=== PATIENT | female | born 1980 | race Caucasian/White ===

== ENCOUNTER 2019-08-07 10:08 | Outpatient (CLI) | payer MEDICARE, MEDICAID, SELFPAY ==
[2019-08-07 10:39] LABS: Basophils % 0.9 %; Eosinophils # 0.1 10^3/uL (0.0-0.8); Eosinophils % 3.3 %; Hematocrit 43.4 % (37.0-47.0); Hemoglobin 13.7 g/dL (11.5-15.3); Lymphocytes # 0.8 10^3/uL (0.8-4.8); Lymphocytes % 23.5 %; Mean Corpuscular HGB Conc 31.6 g/dL (30.0-36.0); Mean Corpuscular Hemoglobin 28.2 pg (28.0-34.0); Mean Corpuscular Volume 89.5 fL (81-99); Mean Platelet Volume 11.2 fL (7.4-10.4); Monocytes # 0.4 10^3/uL (0.2-0.9); Neutrophils # 2.1 10^3/uL (1.8-7.7); Neutrophils % 61.3 %; Nucleated Red Blood Cells % 0 %; Platelet Count 206 10^3/cmm (130-400); Red Blood Count 4.85 10^6/uL (4.1-5.3); Red Cell Distribution Width 12.4 % (12.1-15.1); White Blood Count 3.4 10^3/uL (4.0-10.0)
[2019-08-07 10:50] LABS: Alanine Aminotransferase 11 U/L (0-33); Glomerular Filtration Rate 62.4 mL/min (90-130)
[2019-08-07 14:09] LABS: UPRO/UCREAT Ratio 0.98 mg/mg CR; Urine Creatinine 87 mg/dL (28-217); Urine Protein Random 85 mg/dL
== END 2019-08-07 10:09 | disposition home or self-care (01) ==
PROVIDERS: Family Provider Physician Assistant Medical; PCP Physician Assistant Medical; Visit Provider Internal Medicine
DX: Z79.899 Other long term (current) drug therapy (principal); M32.9 Systemic lupus erythematosus, unspecified
CPT/HCPCS: 36415; 82565; 82570; 84156; 84460; 85025

== ENCOUNTER 2019-08-23 10:22 | Outpatient (CLI) | payer MEDICARE, MEDICAID, SELFPAY ==
[2019-08-23 11:24] LABS: Basophils % 0.7 %; Eosinophils # 0.1 10^3/uL (0.0-0.8); Eosinophils % 2.1 %; Hematocrit 40.4 % (37.0-47.0); Hemoglobin 12.4 g/dL (11.5-15.3); Lymphocytes # 0.8 10^3/uL (0.8-4.8); Lymphocytes % 19.8 %; Mean Corpuscular HGB Conc 30.7 g/dL (30.0-36.0); Mean Corpuscular Hemoglobin 27.9 pg (28.0-34.0); Mean Corpuscular Volume 90.8 fL (81-99); Mean Platelet Volume 11.6 fL (7.4-10.4); Monocytes # 0.4 10^3/uL (0.2-0.9); Monocytes % 9.4 %; Neutrophils # 2.9 10^3/uL (1.8-7.7); Neutrophils % 67.8 %; Nucleated Red Blood Cells % 0 %; Platelet Count 187 10^3/cmm (130-400); Red Blood Count 4.45 10^6/uL (4.1-5.3); Red Cell Distribution Width 12.1 % (12.1-15.1); White Blood Count 4.3 10^3/uL (4.0-10.0)
[2019-08-23 13:26] LABS: Albumin Level 3.2 g/dL (3.5-5.2); Anion Gap 15.1 (5-19); Blood Urea Nitrogen 16 mg/dL (6-20); Calcium 9.3 mg/Dl (8.6-10.0); Carbon Dioxide 23 mmol/L (22-29); Chloride 102 mmol/L (98-107); Glucose 93 mg/dL (74-109); Iron 104 ug/dL (37-145); Percent Saturation 33.2 % (20-50); Phosphorus 4.3 mg/dL (2.5-4.5); Potassium 4.1 mmol/L (3.5-5.1); Sodium 136 mmol/L (136-145); Total Iron Binding Capacity 313 mg/dL; Unsaturated Iron Binding 209 ug/dL (112-347)
[2019-08-23 13:31] LABS: Parathyroid Hormone 49.9 pg/mL (15-65)
[2019-08-23 13:34] LABS: Creatinine Urine, Random 89 mg/dL (28-217); Microalbum Creatinine Ratio Ur 831 mg/dL (0-20); Microalbumin Random Urine 74 ug/dL (0-20)
[2019-08-23 13:40] LABS: Calcium 9.2 mg/dL (8.8-10.2)
[2019-08-23 14:58] LABS: 25 Hydroxy Vitamin D 25 ng/mL (30-100)
== END 2019-08-23 10:23 | disposition home or self-care (01) ==
PROVIDERS: Family Provider Physician Assistant Medical; PCP Physician Assistant Medical; Visit Provider Internal Medicine Nephrology
DX: N18.3 Chronic kidney disease, stage 3 (moderate) (principal)
CPT/HCPCS: 36415; 80069; 82044; 82306; 82310; 83540; 83550; 83970; 85025

== ENCOUNTER 2020-06-25 14:03 | Emergency (ER) | payer MEDICARE, MEDICAID, SELFPAY ==
[2020-06-25 14:08] VITALS: BP 153/93; PULSE 87; RESP 18; TEMP 36.9; O2SAT 99; BMI 41.5
--- NOTE | 2020-06-25 15:11 | ED_ITS ---
Documented by User: WALTER Herrera 06/26/20 07:12 HPI - Abdominal Pain General: Chief Complaint: Abdominal Pain Stated Complaint: ABD pain,lower right side Time Seen by Provider: 06/25/20 15:00 Source: patient Mode of arrival: ambulatory Limitations: no limitations History of Present Illness: HPI narrative: Pleasant 39-year-old female patient presents to the emergency department with 2-day history of right lower quadrant pain. She reports gradual onset started yesterday, much worse this morning. She reports pain located the right lower quadrant, reports nausea, no change in bowel habits. States last bowel movement yesterday, reports movement makes it worse, reports worse if she coughs, sneezes or ambulates. She denies vaginal discharge or dysuria. She has history of lupus, remains on Plaquenil. She reports ate approximately 2 hours prior to arrival, currently drinking cola. Abdominal surgeries: cholecystectomy. MD elicited complaint: abdominal pain Onset (ago): day(s) (2) Location: RLQ Severity: moderate Quality: stabbing and dull Radiation: R flank and back Exacerbating factors: movement Relieving factors: rest Associated Symptoms: Reports nausea; Denies change in stool character, chills, constipation, diarrhea, dyspepsia, dysuria, excessive flatus, fever(s), hematochezia, fecal incontinence and poor appetite Review of Systems General: Reports: 10 or more systems reviewed and unremarkable except in HPI and below Const: Denies: fever(s), chills, body aches, change in weight, fatigue or malaise Eyes: Denies: blurry vision or eye redness ENMT: Denies: throat pain, dental pain or disequilibrium Card: Denies: chest pain, palpitations, irregular heart rhythm, lightheadedness or dyspnea on exertion Resp: Denies: dyspnea, productive cough, non-productive cough, wheezing or chest congestion GI: Reports: abdominal pain (RLQ) and nausea; Denies: diarrhea, constipation, excessive flatus, fecal incontinence, change in stool character or hematochezia : Denies: difficulty voiding or dysuria Musc: Denies: neck pain, back pain, joint redness or muscle weakness Skin/Breast: Denies: rash, pruritus, skin tenderness or changes in skin color Neuro: Denies: headache(s), weakness in extremities or behavioral changes Psych: Denies: anxiety or depression Jamarcus/Lymph: Denies: easy bruising Physical Exam Const: COMMON NORMALS: no acute distress, patient oriented x3, healthy appearing and alert GENERAL APPEARANCE: cooperative, comfortable and well hydrated HENMT: COMMON NORMALS: normocephalic, Normal external nose present and moist oral mucous membranes HEAD & SCALP: normocephalic NOSE: Normal external nose present Eye: COMMON NORMALS: Equal, round and reactive pupils present and EOMs intact bilaterally GENERAL EYE: appearance normal, both eyes and all related structures PUPIL: Yes Equal, round and reactive pupils present Neck/C-Spine: COMMON NORMALS: full ROM and no lymphadenopathy GENERAL: Yes normal visual inspection and Yes trachea midline CERVICAL SPINE: Yes cervical ROM normal Lymph: LYMPHATIC: no lymphadenopathy noted Chest: COMMONS NORMALS: normal inspection of the chest Resp: COMMON NORMALS: normal respiratory effort and clear to auscultation bilaterally AUSCULTATION: clear to auscultation bilaterally Cardio: COMMON NORMALS: regular rhythm, S1 normal heart sound present and S2 normal heart sound present RHYTHM: regular rhythm HEART SOUNDS: S1 normal heart sound present and S2 normal heart sound present GI: COMMON NORMALS: Normal to inspection, nondistended, normoactive bowel sounds present, Soft to palpation and non-tender INSPECTION: Yes normal to inspection, No Abdominal wall edema, No abdominal distension, Yes central obesity, No visible herniation, No Fluid wave present and Yes other (+ luis, + rebound, + McBurney's) AUSCULTATION: Yes normoactive bowel sounds PALPATION: Yes Soft to palpation, Yes Tenderness to palpation present (GI) Details: RLQ, No Hernia present, No Abdominal wall crepitus present and No Bladder palpation abnormal PERCUSSION: no fluid wave : COMMON NORMALS: Yes no CVA tenderness BLADDER/KIDNEY EXAM: Yes no CVA tenderness and No Bladder palpation abnormal EXTERNAL FEMALE EXAM: No Hernia present Back/Pelvis: COMMON NORMALS: no CVA tenderness and thoracic and lumbar spine normal to inspection Extremity: COMMON NORMALS: normal to inspection and capillary refill normal Neuro: COMMON NORMALS: patient oriented x3 and no focal motor deficits SENSORIUM/ORIENTATION: Yes alert Psych: COMMON NORMALS: mental status grossly normal, Normal thought process present and cooperative ACTIVITY/MOTOR BEHAVIOR: Yes appropriate eye contact THOUGHT PROCESS: Normal thought process present Skin: COMMON NORMALS: no rashes or lesions noted and turgor normal GENERAL SKIN EXAM: no rashes or lesions noted and turgor normal Course Vital Signs: Vital signs: Vital Signs Temperature 98.4 F 06/25/20 14:08 Pulse Rate 83 06/25/20 18:32 Respiratory Rate 16 06/25/20 18:32 Blood Pressure 139/101 06/25/20 18:32 Pulse Oximetry 97 06/25/20 18:32 MDM - Abdominal Pain Lab Data: Labs: Lab Results 06/25/20 06/25/20 06/25/20 Range/Units 15:26 15:26 15:32 WBC 4.7 (4.0-10.0) 10^3/ uL RBC 4.20 (4.1-5.3) 10^6/u L Hgb 11.5 (11.5-15.3) g/dL Hct 37.7 (37.0-47.0) % MCV 89.8 (81-99) fL MCH 27.4 L (28.0-34.0) pg MCHC 30.5 (30.0-36.0) g/dL RDW 13.0 (12.1-15.1) % Plt Count 182 (130-400) 10^3/c mm MPV 11.7 H (7.4-10.4) fL Neut % (Auto) 65.0 % Lymph % (Auto) 19.7 % [place] % (Auto) 11.8 % Eos % (Auto) 2.4 % Baso % (Auto) 0.9 % Neut # (Auto) 3.03 (1.8-7.7) 10^3/u L Lymph # (Auto) 0.9 (0.8-4.8) 10^3/u L [place] # (Auto) 0.6 (0.2-0.9) 10^3/u L Eos # (Auto) 0.1 (0.0-0.8) 10^3/u L Baso # (Auto) 0.0 (0.0-0.1) 10^3/u L Nucleated RBC % (a uto) 0 % Nucleated RBCs # 0.0 /100WBC Sodium 143 (136-145) mmol/L Potassium 4.3 (3.5-5.1) mmol/L Chloride 109 H (98-107) mmol/L Carbon Dioxide 26 (22-29) mmol/L Anion Gap 12.3 (5-19) BUN 19 (6-20) mg/dL Creatinine 0.9 (0.5-0.9) mg/dL GFR Calculation 70.5 L (90-130) mL/min Glucose 90 (65-115) mg/dL Calculated Osmolal ity 298 H (285-295) mOsm/k g Calcium 8.7 (8.5-10.5) mg/dL Total Bilirubin 0.2 (0.15-1.2) mg/dL AST 18 (0-32) U/L ALT 13 (0-33) U/L Alkaline Phosphata se 51 (35-105) IU/L Total Protein 6.1 L (6.6-8.7) g/dL Albumin 3.3 L (3.5-5.2) g/dL Globulin 2.8 (1.3-4.6) g/dL Lipase 49 (13-60) U/L HCG, Qual Negative (Negative) Urine Color (Yellow) Urine Appearance (CLEAR) Urine pH (5-7) Ur Specific Gravit y (1.005-1.030) Urine Protein (Negative) Urine Glucose (UA) (Normal) Urine Ketones (Negative) Urine Blood (Negative) Urine Nitrate (Negative) Urine Bilirubin (Negative) Urine Urobilinogen (Negative) mg/dL Ur Leukocyte Bhumi ase (Negative) Urine RBC (0-2) /hpf Urine WBC (0-5) /hpf Ur Squamous Epith Cells (0-5) /hpf Amorphous Sediment Urine Bacteria (NONE) /hpf 06/25/ Range/Units 15:32 WBC (4.0-10.0) 10^3/ uL RBC (4.1-5.3) 10^6/u L Hgb (11.5-15.3) g/dL Hct (37.0-47.0) % MCV (81-99) fL MCH (28.0-34.0) pg MCHC (30.0-36.0) g/dL RDW (12.1-15.1) % Plt Count (130-400) 10^3/c mm MPV (7.4-10.4) fL Neut % (Auto) % Lymph % (Auto) % [place] % (Auto) % Eos % (Auto) % Baso % (Auto) % Neut # (Auto) (1.8-7.7) 10^3/u L Lymph # (Auto) (0.8-4.8) 10^3/u L [place] # (Auto) (0.2-0.9) 10^3/u L Eos # (Auto) (0.0-0.8) 10^3/u L Baso # (Auto) (0.0-0.1) 10^3/u L Nucleated RBC % (a uto) % Nucleated RBCs # /100WBC Sodium (136-145) mmol/L Potassium (3.5-5.1) mmol/L Chloride (98-107) mmol/L Carbon Dioxide (22-29) mmol/L Anion Gap (5-19) BUN (6-20) mg/dL Creatinine (0.5-0.9) mg/dL GFR Calculation (90-130) mL/min Glucose (65-115) mg/dL Calculated Osmolal ity (285-295) mOsm/k g Calcium (8.5-10.5) mg/dL Total Bilirubin (0.15-1.2) mg/dL AST (0-32) U/L ALT (0-33) U/L Alkaline Phosphata se (35-105) IU/L Total Protein (6.6-8.7) g/dL Albumin (3.5-5.2) g/dL Globulin (1.3-4.6) g/dL Lipase (13-60) U/L HCG, Qual (Negative) Urine Color Yellow (Yellow) Urine Appearance Clear (CLEAR) Urine pH 5 (5-7) Ur Specific Gravit y 1.010 (1.005-1.030) Urine Protein 3+ H (Negative) Urine Glucose (UA) Norm (Normal) Urine Ketones Negative (Negative) Urine Blood Neg (Negative) Urine Nitrate Negative (Negative) Urine Bilirubin Neg (Negative) Urine Urobilinogen Norm (Negative) mg/dL Ur Leukocyte Bhumi ase Negative (Negative) Urine RBC Rare (0-2) /hpf Urine WBC Rare (0-5) /hpf Ur Squamous Epith Cells 0-4 H (0-5) /hpf Amorphous Sediment Not Reportable Urine Bacteria Trace (NONE) /hpf Imaging Data ^: CT Abd/Pel: Radiologist's impression: [facility] [address] [place] [address] CT Scan Report Signed Patient: Gia Aguayo Unit #: [id number] : 1980 Age/Sex: 39 / F ADM Date: 06/25/20 Loc: ER Room/Bed: Attending Dr: Ordering Provider/Ordering MD: Greta Naqvi Date of Service: 06/25/20 Procedure(s): CT abdomen pelvis w con* [id number] Accession Number(s): [id number] Report Number: [id number] WS: [id number] CT abdomen pelvis w con* [id number] REASON FOR EXAM: RLQ pain IV CONTRAST ADMINISTERED: 95 mL of Omnipaque 300. TOTAL EXAM DLP: 1653.[address] scans at [facility] use at least one of these dose optimization techniques: automated exposure control; mA and/or kV adjustment per patient size (includes targeted exams where dose is matched to clinical indication); or iterative reconstruction. FINDINGS: ABDOMEN: There is been previous gastric surgery. A portion of the stomach and perhaps a wrap of the distal esophagus, have become displaced into the mediastinum. The small bowel leaving the surgical stomach follows the course of the duodenum and is dilated in its proximal portion.It appears to be normal caliber after passing the ligament of Treitz. The pancreas appears normal. The spleen is unremarkable. The gallbladder has been surgically removed. No abnormality of the liver is seen. The adrenals and kidneys are unremarkable. No renal mass, calculi, or hydronephrosis. The right colon is very redundant with the cecum lying near the midline where the ileocecal bowel is located. The appendix is not identified. No inflammatory changes seen in the region of the cecum. No mass or adenopathy. No free fluid or focal fluid collection. There are some mildly dilated loops of small bowel in the right upper pelvis/lower abdomen. No other associated changes. Nonspecific. No ureteral calculi. Abdominal aorta and its major branches are unremarkable. PELVIS: Normal urinary bladder. No mass or adenopathy. No free fluid or focal fluid collection. CT/CT abdomen pelvis w con* [id number] IMPRESSION: Postoperative stomach with displacement as above. No definite acute intra-abdominal or pelvic abnormality is identified. Dictated By: Jurgen Wallace Jr, MD Signed By: Jurgen Wallace Jr, MD Signed Date/Time: 06/25/20 172 DD/ 50 Discharge Plan Discharge Patient Disposition: Home Clinical Impression: Abdominal pain Qualifiers: Abdominal location: right lower quadrant Qualified Code(s): R10.31 - Right lower quadrant pain Condition: Stable Prescriptions: No Action sulfamethoxazole-trimethoprim 400-80 mg tablet See Rx Instructions .ROUTE .COMPLEX RF: 0 prednisone 5 mg tablet 5 mg PO DAILY RF: 0 doxepin 10 mg capsule 10 mg PO DAILY RF: 0 mycophenolate mofetil 500 mg tablet 1,500 mg PO BID RF: 0 levothyroxine 50 mcg tablet 50 mcg PO DAILY RF: 0 hydroxychloroquine 200 mg tablet 200 mg PO BID RF: 0 pregabalin 150 mg capsule 150 mg PO BID RF: 0 Discharge Orders: Discharge Order (Routine); Ordered 06/25/20 Ordered By: Ravindra Cristobal Referrals: Thierno Jarrett [Primary Care Provider] - Discharge Diet: Advance as tolerated Discharge Activity: Increase activity as tolerated Patient Instructions: Abdominal Pain (ED) Activity Restrictions/Additional Instructions: Follow-up with medical provider as directed in 5 to 7 days for reevaluation. Return to ED for reevaluation, if worsening abdominal pain. Continue taking all home medications. Return to the ER or your medical provider if condition worsens. Please read and understand discharge instructions. If any questions, please ask. Sign Out Sign Out Data: Patient Sign Out occurred on 06/25/20 at 17:33. Patient's care was discussed, and care was transferred from WALTER Herrera to CHARLENE Sheth. Sign Out Comment: change of shift, transfer of care to CHARLENE Sheth; CT abd/pelvis pending Last updated by Greta Naqvi ARNP at 06/25/20 17:27 Coding Level of Care Code ED Corrections Counselor for Chg Fwd Exam Comprehensive Documented by User: CHARLENE Sheth 06/26/20 00:52 HPI - Abdominal Pain General: Chief Complaint: Abdominal Pain Stated Complaint: ABD pain,lower right side Time Seen by Provider: 06/25/20 15:00 Course Vital Signs: Vital signs: Vital Signs Temperature 98.4 F 06/25/20 14:08 Pulse Rate 83 06/25/20 18:32 Respiratory Rate 16 06/25/20 18:32 Blood Pressure 139/101 06/25/20 18:32 Pulse Oximetry 97 06/25/20 18:32 MDM - Abdominal Pain MDM Narrative: Medical decision making narrative: Patient is a 39-year-old female who comes to the ED with right lower quadrant abdominal pain. I took over patient care from [facility] at 5 PM. She did the initial work-up history and physical exam and says she is suspicious of appendicitis and CT of abdomen results are pending. CBC and CMP were unremarkable. CT of abdomen showed no acute findings. Vitals are stable. Patient was given IV fluids, Zofran and morphine while here in the ED and symptoms did improve. Patient was discharged and told to follow-up with PCP in 5 days. Return to ED precautions given. Patient understood and agreed with plan. Lab Data: Attestation: I reviewed the patient's lab results. Labs: Lab Results 06/25/20 06/25/20 06/25/20 Range/Units 15:26 15:26 15:32 WBC 4.7 (4.0-10.0) 10^3/ uL RBC 4.20 (4.1-5.3) 10^6/u L Hgb 11.5 (11.5-15.3) g/dL Hct 37.7 (37.0-47.0) % MCV 89.8 (81-99) fL MCH 27.4 L (28.0-34.0) pg MCHC 30.5 (30.0-36.0) g/dL RDW 13.0 (12.1-15.1) % Plt Count 182 (130-400) 10^3/c mm MPV 11.7 H (7.4-10.4) fL Neut % (Auto) 65.0 % Lymph % (Auto) 19.7 % [place] % (Auto) 11.8 % Eos % (Auto) 2.4 % Baso % (Auto) 0.9 % Neut # (Auto) 3.03 (1.8-7.7) 10^3/u L Lymph # (Auto) 0.9 (0.8-4.8) 10^3/u L [place] # (Auto) 0.6 (0.2-0.9) 10^3/u L Eos # (Auto) 0.1 (0.0-0.8) 10^3/u L Baso # (Auto) 0.0 (0.0-0.1) 10^3/u L Nucleated RBC % (a uto) 0 % Nucleated RBCs # 0.0 /100WBC Sodium 143 (136-145) mmol/L Potassium 4.3 (3.5-5.1) mmol/L Chloride 109 H (98-107) mmol/L Carbon Dioxide 26 (22-29) mmol/L Anion Gap 12.3 (5-19) BUN 19 (6-20) mg/dL Creatinine 0.9 (0.5-0.9) mg/dL GFR Calculation 70.5 L (90-130) mL/min Glucose 90 (65-115) mg/dL Calculated Osmolal ity 298 H (285-295) mOsm/k g Calcium 8.7 (8.5-10.5) mg/dL Total Bilirubin 0.2 (0.15-1.2) mg/dL AST 18 (0-32) U/L ALT 13 (0-33) U/L Alkaline Phosphata se 51 (35-105) IU/L Total Protein 6.1 L (6.6-8.7) g/dL Albumin 3.3 L (3.5-5.2) g/dL Globulin 2.8 (1.3-4.6) g/dL Lipase 49 (13-60) U/L HCG, Qual Negative (Negative) Urine Color (Yellow) Urine Appearance (CLEAR) Urine pH (5-7) Ur Specific Gravit y (1.005-1.030) Urine Protein (Negative) Urine Glucose (UA) (Normal) Urine Ketones (Negative) Urine Blood (Negative) Urine Nitrate (Negative) Urine Bilirubin (Negative) Urine Urobilinogen (Negative) mg/dL Ur Leukocyte Bhumi ase (Negative) Urine RBC (0-2) /hpf Urine WBC (0-5) /hpf Ur Squamous Epith Cells (0-5) /hpf Amorphous Sediment Urine Bacteria (NONE) /hpf 06/25/20 Range/Units 15:32 WBC (4.0-10.0) 10^3/ uL RBC (4.1-5.3) 10^6/u L Hgb (11.5-15.3) g/dL Hct (37.0-47.0) % MCV (81-99) fL MCH (28.0-34.0) pg MCHC (30.0-36.0) g/dL RDW (12.1-15.1) % Plt Count (130-400) 10^3/c mm MPV (7.4-10.4) fL Neut % (Auto) % Lymph % (Auto) % [place] % (Auto) % Eos % (Auto) % Baso % (Auto) % Neut # (Auto) (1.8-7.7) 10^3/u L Lymph # (Auto) (0.8-4.8) 10^3/u L [place] # (Auto) (0.2-0.9) 10^3/u L Eos # (Auto) (0.0-0.8) 10^3/u L Baso # (Auto) (0.0-0.1) 10^3/u L Nucleated RBC % (a uto) % Nucleated RBCs # /100WBC Sodium (136-145) mmol/L Potassium (3.5-5.1) mmol/L Chloride (98-107) mmol/L Carbon Dioxide (22-29) mmol/L Anion Gap (5-19) BUN (6-20) mg/dL Creatinine (0.5-0.9) mg/dL GFR Calculation (90-130) mL/min Glucose (65-115) mg/dL Calculated Osmolal ity (285-295) mOsm/k g Calcium (8.5-10.5) mg/dL Total Bilirubin (0.15-1.2) mg/dL AST (0-32) U/L ALT (0-33) U/L Alkaline Phosphata se (35-105) IU/L Total Protein (6.6-8.7) g/dL Albumin (3.5-5.2) g/dL Globulin (1.3-4.6) g/dL Lipase (13-60) U/L HCG, Qual (Negative) Urine Color Yellow (Yellow) Urine Appearance Clear (CLEAR) Urine pH 5 (5-7) Ur Specific Gravit y 1.010 (1.005-1.030) Urine Protein 3+ H (Negative) Urine Glucose (UA) Norm (Normal) Urine Ketones Negative (Negative) Urine Blood Neg (Negative) Urine Nitrate Negative (Negative) Urine Bilirubin Neg (Negative) Urine Urobilinogen Norm (Negative) mg/dL Ur Leukocyte Bhumi ase Negative (Negative) Urine RBC Rare (0-2) /hpf Urine WBC Rare (0-5) /hpf Ur Squamous Epith Cells 0-4 H (0-5) /hpf Amorphous Sediment Not Reportable Urine Bacteria Trace (NONE) /hpf Discharge Plan Discharge Patient Disposition: Home Clinical Impression: Abdominal pain Qualifiers: Abdominal location: right lower quadrant Qualified Code(s): R10.31 - Right lower quadrant pain Condition: Stable Prescriptions: No Action sulfamethoxazole-trimethoprim 400-80 mg tablet See Rx Instructions .ROUTE .COMPLEX RF: 0 prednisone 5 mg tablet 5 mg PO DAILY RF: 0 doxepin 10 mg capsule 10 mg PO DAILY RF: 0 mycophenolate mofetil 500 mg tablet 1,500 mg PO BID RF: 0 levothyroxine 50 mcg tablet 50 mcg PO DAILY RF: 0 hydroxychloroquine 200 mg tablet 200 mg PO BID RF: 0 pregabalin 150 mg capsule 150 mg PO BID RF: 0 Discharge Orders: Discharge Order (Routine); Ordered 06/25/20 Ordered By: Ravindra Cristobal Referrals: Thierno Jarrett [Primary Care Provider] - Discharge Diet: Advance as tolerated Discharge Activity: Increase activity as tolerated Patient Instructions: Abdominal Pain (ED) Activity Restrictions/Additional Instructions: Follow-up with medical provider as directed in 5 to 7 days for reevaluation. Return to ED for reevaluation, if worsening abdominal pain. Continue taking all home medications. Return to the ER or your medical provider if condition worsens. Please read and understand discharge instructions. If any questions, please ask. Sign Out Sign Out Data: Patient Sign Out occurred on 06/25/20 at 17:33. Patient's care was discussed, and care was transferred from WALTER Herrera to Ravindra Levar, PA. Sign Out Comment: change of shift, transfer of care to CHARLENE Sheth; CT abd/pelvis pending Last updated by Greta Naqvi ARNP at 06/25/20 17:27 Coding Level of Care Code ED Corrections Counselor for Chg Fwd Exam Comprehensive
--- NOTE | 2020-06-25 15:11 | XR_ITS ---
WS: [id number] XR KUB [id number] REASON FOR EXAM: RLQ pain FINDINGS: Moderate amount of stool throughout the colon with large amount of stool in the rectal vault. No dila raina small bowel. No free air or retroperitoneal air. No urinary tract calculi or other significant calcification. No mass is identified. XR/XR KUB [id number] IMPRESSION: Bowel gas pattern as above.
[2020-06-25] MEDS: ondansetron 2 mg/ML SDV 2 mL 4 MG IVP (15:33)
[2020-06-25] MEDS: morphine 4 mg/mL SDV 1 mL 2 MG IVP ×2 (15:34→18:26)
[2020-06-25 15:48] LABS: Basophils % 0.9 %; Eosinophils # 0.1 10^3/uL (0.0-0.8); Eosinophils % 2.4 %; Hematocrit 37.7 % (37.0-47.0); Hemoglobin 11.5 g/dL (11.5-15.3); Lymphocytes # 0.9 10^3/uL (0.8-4.8); Lymphocytes % 19.7 %; Mean Corpuscular HGB Conc 30.5 g/dL (30.0-36.0); Mean Corpuscular Hemoglobin 27.4 pg (28.0-34.0); Mean Corpuscular Volume 89.8 fL (81-99); Mean Platelet Volume 11.7 fL (7.4-10.4); Monocytes # 0.6 10^3/uL (0.2-0.9); Monocytes % 11.8 %; Neutrophils # 3.03 10^3/uL (1.8-7.7); Nucleated Red Blood Cells % 0 %; Platelet Count 182 10^3/cmm (130-400); White Blood Count 4.7 10^3/uL (4.0-10.0)
[2020-06-25 15:56] LABS: HCG Qualitative Urine. Negative (Negative)
--- NOTE | 2020-06-25 15:56 | CT_ITS ---
WS: [id number] CT abdomen pelvis w con* [id number] REASON FOR EXAM: RLQ pain IV CONTRAST ADMINISTERED: 95 mL of Omnipaque 300. TOTAL EXAM DLP: 1653.[address] scans at [facility] use at least one of these dose optimization techniques: automat ed exposure control; mA and/or kV adjustment per patient size (includes targeted exams where dose is matched to clinical indication); or iterative reconstruction. FINDINGS: ABDOMEN: There is been previous gastric surgery. A portion of the stomach and perhaps a wrap of the distal eso phagus, have become displaced into the mediastinum. The small bowel leaving the surgical stomach foll ows the course of the duodenum and is dilated in its proximal portion.It appears to be normal caliber after passing the ligament of Treitz. The pancreas appears normal. The spleen is unremarkable. The gallbladder has been surgically removed. No abnormality of the liver is seen. The adrenals and kidneys are unremarkable. No renal mass, calculi, or hydronephrosis. The right colon is very redundant with the cecum lying near the midline where the ileocecal bowel is located. The appendix is not identified. No inflammatory changes seen in the region of the cecum. No mass or adenopathy. No free fluid or focal fluid collection. There are some mildly dilated loops of small bowel in the right upper pelvis/lower abdomen. No other associated changes. Nonspecific. No ureteral calculi. Abdominal aorta and its major branches are unremarkable. PELVIS: Normal urinary bladder. No mass or adenopathy. No free fluid or focal fluid collection. CT/CT abdomen pelvis w con* [id number] IMPRESSION: Postoperative stomach with displacement as above. No definite acute intra-abdominal or pelvic abnormality is identified.
[2020-06-25 16:05] LABS: Add Urine Culture? No; Add Urine Microscopic? YES; Bacteria Urine TRACE /hpf; Bilirubin Urine Neg (Negative); Blood Urine Neg (Negative); Glucose Urine UA Norm (Normal); Ketones Urine Negative (Negative); Leukocyte Esterase Urine Negative (Negative); Nitrate Urine Negative (Negative); Protein Urine 3+ (Negative); RBC Urine RARE /hpf (0-2); Squamous Epithelial Cell Urine 0-4 /hpf (0-5); Urine Appearance Clear (CLEAR); Urine Color Yellow (Yellow); Urobilinogen Urine Norm (Negative); WBC Urine RARE /hpf (0-5); pH Urine 5 (5-7)
[2020-06-25 16:08] LABS: Alanine Aminotransferase 13 U/L (0-33); Albumin Level 3.3 g/dL (3.5-5.2); Alkaline Phosphatase 51 IU/L (35-105); Aspartate Amino Transferase 18 U/L (0-32); Blood Urea Nitrogen 19 mg/dL (6-20); Calcium 8.7 mg/dL (8.5-10.5); Carbon Dioxide 26 mmol/L (22-29); Chloride 109 mmol/L (98-107); Globulin 2.8 g/dL (1.3-4.6); Glomerular Filtration Rate 70.5 mL/min (90-130); Glucose 90 mg/dL (65-115); Lipase 49 U/L (13-60); Osmolality Calculated 298 mOsm/kg (285-295); Sodium 143 mmol/L (136-145); Total Bilirubin 0.2 mg/dL (0.15-1.2); Total Protein 6.1 g/dL (6.6-8.7)
[2020-06-25 16:10] LABS: Anion Gap 12.3 (5-19); Potassium 4.3 mmol/L (3.5-5.1)
[2020-06-25] MEDS: iohexol 300 mg/mL 100 mL Btl IV (16:20)
[2020-06-25] MEDS: HYDROcodone-acetaminophen 7.5-325 mg Tablet 2 TAB PO (18:24)
[2020-06-25 18:26] VITALS: RESP 18
[2020-06-25 18:32] VITALS: BP 139/101; PULSE 83; RESP 16; O2SAT 97
== END 2020-06-25 18:33 | disposition home or self-care (01) ==
PROVIDERS: Emergency Medicine; Emergency Provider Physician Assistant; PCP Physician Assistant Medical
DX: R10.31 Right lower quadrant pain (principal)
CPT/HCPCS: 12345; 74018; 74177; 80053; 81001; 81025; 83690; 85025; 96361; 96374; 96375; 99282; 99283; J2270; J2405; Q9967

== ENCOUNTER → 2020-06-26 09:21 | Outpatient (BNVA) | payer MEDICARE, MEDICAID, SELFPAY | PROVIDERS: PCP Physician Assistant Medical; Referring Provider Physician Assistant Medical; Visit Provider Anesthesiology Pain Medicine | DX: R51.9 Headache, unspecified (principal); M54.42 Lumbago with sciatica, left side; M54.9 Dorsalgia, unspecified; M32.9 Systemic lupus erythematosus, unspecified; F17.210 Nicotine dependence, cigarettes, uncomplicated | CPT/HCPCS: 99202; 99203 ==

== ENCOUNTER → 2020-09-07 15:10 | Outpatient (BNVA) | payer MEDICARE, MEDICAID, SELFPAY | PROVIDERS: PCP Physician Assistant Medical; Visit Provider Nurse Practitioner Family | DX: Z20.828 Contact with and (suspected) exposure to other viral communicable diseases (principal) | CPT/HCPCS: 87635 ==

== ENCOUNTER 2020-10-21 11:24 | Outpatient (CLI) | payer MEDICARE, MEDICAID, SELFPAY ==
[2020-10-21 12:12] LABS: Basophils % 0.4 %; Eosinophils # 0.1 10^3/uL (0.0-0.8); Eosinophils % 0.8 %; Hematocrit 41.3 % (37.0-47.0); Hemoglobin 12.6 g/dL (11.5-15.3); Lymphocytes % 28.2 %; Mean Corpuscular HGB Conc 30.5 g/dL (30.0-36.0); Mean Corpuscular Volume 88.6 fL (81-99); Mean Platelet Volume 12.4 fL (7.4-10.4); Monocytes # 0.6 10^3/uL (0.2-0.9); Monocytes % 8.1 %; Neutrophils # 4.46 10^3/uL (1.8-7.7); Neutrophils % 62.4 %; Nucleated Red Blood Cells % 0 %; Red Blood Count 4.66 10^6/uL (4.1-5.3); Red Cell Distribution Width 13.1 % (12.1-15.1); White Blood Count 7.2 10^3/uL (4.0-10.0)
[2020-10-21 12:26] LABS: Platelet Count 111 10^3/cmm (130-400); Slide Review Slide Review Perform
[2020-10-21 12:53] LABS: Calcium 8.7 mg/dL (8.5-10.5); Parathyroid Hormone 83.6 pg/mL (15-65)
[2020-10-21 13:07] LABS: Urine Creatinine 89 mg/dL (28-217)
[2020-10-21 13:11] LABS: UPRO/UCREAT Ratio 0.96 mg/mg CR; Urine Protein Random 85 mg/dL
[2020-10-21 13:18] LABS: 25 Hydroxy Vitamin D 15 ng/mL (30-100)
[2020-10-22 09:14] LABS: Albumin Level 3.7 g/dL (3.5-5.2); Blood Urea Nitrogen 18 mg/dL (6-20); Calcium 8.6 mg/dL (8.5-10.5); Chloride 105 mmol/L (98-107); Glomerular Filtration Rate 62.1 mL/min (90-130); Glucose 73 mg/dL (65-115); Sodium 138 mmol/L (136-145)
[2020-10-22 09:15] LABS: Potassium 4.9 mmol/L (3.5-5.1)
[2020-10-22 09:31] LABS: Anion Gap 21.9 (5-19); Carbon Dioxide 16 mmol/L (22-29)
== END 2020-10-21 11:25 | disposition home or self-care (01) ==
PROVIDERS: PCP Physician Assistant Medical; Visit Provider Internal Medicine Nephrology
DX: N18.30 Chronic kidney disease, stage 3 unspecified (principal)
CPT/HCPCS: 36415; 80069; 82306; 82310; 82570; 83970; 84156; 85025

== ENCOUNTER 2021-04-14 09:40 | Outpatient (CLI) | payer MEDICARE, MEDICAID, SELFPAY ==
[2021-04-14 10:17] LABS: Basophils % 0.5 %; Eosinophils # 0.1 10^3/uL (0.0-0.8); Eosinophils % 2.3 %; Hematocrit 38.4 % (37.0-47.0); Hemoglobin 11.8 g/dL (11.5-15.3); Lymphocytes # 1.1 10^3/uL (0.8-4.8); Lymphocytes % 27.6 %; Mean Corpuscular HGB Conc 30.7 g/dL (30.0-36.0); Mean Corpuscular Hemoglobin 26.5 pg (28.0-34.0); Mean Corpuscular Volume 86.1 fl (81-99); Mean Platelet Volume 10.9 fL (7.4-10.4); Monocytes # 0.6 10^3/uL (0.2-0.9); Monocytes % 14.3 %; Neutrophils # 2.11 10^3/uL (1.8-7.7); Nucleated Red Blood Cells % 0 %; Platelet Count 217 10^3/cmm (130-400); Red Blood Count 4.46 10^6/uL (4.1-5.3); Red Cell Distribution Width 13.5 % (12.1-15.1); White Blood Count 3.8 10^3/uL (4.0-10.0)
[2021-04-14 10:38] LABS: Alanine Aminotransferase 11 U/L (0-33); Glomerular Filtration Rate 62.1 mL/min (90-130)
[2021-04-14 10:46] LABS: Urine Creatinine 77 mg/dL (28-217)
[2021-04-14 11:09] LABS: UPRO/UCREAT Ratio 1.21 mg/mg CR; Urine Protein Random 93 mg/dL
== END 2021-04-14 09:41 | disposition home or self-care (01) ==
LOC: LAB 09:47
PROVIDERS: PCP Physician Assistant Medical; Visit Provider Internal Medicine
DX: Z79.899 Other long term (current) drug therapy (principal)
CPT/HCPCS: 36415; 82565; 82570; 84156; 84460; 85025

== ENCOUNTER 2021-11-27 10:08 | Outpatient (CLI) | payer MEDICARE, MEDICAID, SELFPAY ==
[2021-11-27 11:04] LABS: Basophils % 0.6 %; Eosinophils # 0.1 10^3/uL (0.0-0.8); Eosinophils % 1.8 %; Hematocrit 38.9 % (37.0-47.0); Lymphocytes % 19.2 %; Mean Corpuscular HGB Conc 30.8 g/dL (30.0-36.0); Mean Corpuscular Hemoglobin 25.6 pg (28.0-34.0); Mean Corpuscular Volume 83.1 fl (81-99); Mean Platelet Volume 11.1 fL (7.4-10.4); Monocytes # 0.4 10^3/uL (0.2-0.9); Monocytes % 6.8 %; Neutrophils # 3.66 10^3/uL (1.8-7.7); Neutrophils % 71.6 %; Nucleated Red Blood Cells % 0 %; Platelet Count 218 10^3/cmm (130-400); Red Blood Count 4.68 10^6/uL (4.1-5.3); Red Cell Distribution Width 14.3 % (12.1-15.1); White Blood Count 5.1 10^3/uL (4.0-10.0)
[2021-11-27 11:27] LABS: Calcium 9.2 mg/dL (8.5-10.5)
[2021-11-27 11:29] LABS: Albumin Level 3.9 g/dL (3.5-5.2); Anion Gap 15.3 (5-19); Blood Urea Nitrogen 17 mg/dL (6-20); Calcium 9.4 mg/dL (8.5-10.5); Carbon Dioxide 21 mmol/L (22-29); Chloride 105 mmol/L (98-107); Glomerular Filtration Rate 61.7 mL/min (90-130); Glucose 103 mg/dL (65-115); Phosphorus 4.1 mg/dL (2.5-4.5); Potassium 4.3 mmol/L (3.5-5.1); Sodium 137 mmol/L (136-145)
[2021-11-27 11:35] LABS: Parathyroid Hormone 24.4 pg/mL (15-65)
[2021-11-27 11:45] LABS: 25 Hydroxy Vitamin D 59 ng/mL (30-100)
[2021-11-27 11:45] LABS: Creatinine Urine, Random 131 mg/dL (28-217); Microalbumin Random Urine 38 ug/dL (0-20)
[2021-11-27 11:46] LABS: Microalbum Creatinine Ratio Ur 290 mg/dL (0-20)
== END 2021-11-27 10:09 | disposition home or self-care (01) ==
PROVIDERS: PCP Physician Assistant Medical; Visit Provider Internal Medicine Nephrology
DX: N18.30 Chronic kidney disease, stage 3 unspecified (principal); E55.9 Vitamin D deficiency, unspecified
CPT/HCPCS: 36415; 80069; 82044; 82306; 82310; 83970; 85025

== ENCOUNTER 2022-04-13 09:46 | Outpatient (CLI) | payer MEDICARE, MEDICAID, SELFPAY ==
[2022-04-13 11:00] LABS: Basophils % 0.7 %; Eosinophils # 0.1 10^3/uL (0.0-0.8); Eosinophils % 1.5 %; Hematocrit 37.6 % (37.0-47.0); Hemoglobin 11.1 g/dL (11.5-15.3); Lymphocytes # 0.8 10^3/uL (0.8-4.8); Lymphocytes % 18.8 %; Mean Corpuscular HGB Conc 29.5 g/dL (30.0-36.0); Mean Corpuscular Hemoglobin 24.5 pg (28.0-34.0); Mean Platelet Volume 11.3 fL (7.4-10.4); Monocytes # 0.4 10^3/uL (0.2-0.9); Monocytes % 9.7 %; Neutrophils # 2.79 10^3/uL (1.8-7.7); Neutrophils % 69.1 %; Nucleated Red Blood Cells % 0 %; Platelet Count 233 10^3/cmm (130-400); Red Blood Count 4.53 10^6/uL (4.1-5.3); Red Cell Distribution Width 14.3 % (12.1-15.1)
[2022-04-13 11:19] LABS: Alanine Aminotransferase 12 U/L (0-33); Complement C3 123 mg/dL (90-180); Glomerular Filtration Rate 61.7 mL/min (90-130)
== END 2022-04-13 09:47 | disposition home or self-care (01) ==
LOC: LAB 10:09
PROVIDERS: PCP Physician Assistant Medical; Visit Provider Internal Medicine
DX: M32.9 Systemic lupus erythematosus, unspecified (principal)
CPT/HCPCS: 36415; 82565; 84460; 85025; 86160

== ENCOUNTER 2022-12-18 07:58 | Outpatient (CLI) | payer MEDICARE, MEDICAID, SELFPAY ==
[2022-12-18 09:02] LABS: Basophils # 0.1 10^3/uL (0.0-0.1); Basophils % 1.3 %; Eosinophils # 0.1 10^3/uL (0.0-0.8); Eosinophils % 3.3 %; Hematocrit 43.1 % (37.0-47.0); Hemoglobin 13.1 g/dL (11.5-15.3); Lymphocytes % 24.9 %; Mean Corpuscular HGB Conc 30.4 g/dL (30.0-36.0); Mean Corpuscular Hemoglobin 27.2 pg (28.0-34.0); Mean Corpuscular Volume 89.4 fl (81-99); Monocytes # 0.4 10^3/uL (0.2-0.9); Monocytes % 10.5 %; Neutrophils # 2.33 10^3/uL (1.8-7.7); Neutrophils % 59.7 %; Nucleated Red Blood Cells % 0 %; Platelet Count 236 10^3/cmm (130-400); Red Blood Count 4.82 10^6/uL (4.1-5.3); Red Cell Distribution Width 13.6 % (12.1-15.1); White Blood Count 3.9 10^3/uL (4.0-10.0)
[2022-12-18 09:18] LABS: Albumin Level 3.7 g/dL (3.5-5.2); Anion Gap 13.2 (5-19); Blood Urea Nitrogen 13 mg/dL (6-20); Calcium 8.5 mg/dL (8.5-10.5); Calcium 8.6 mg/dL (8.5-10.5); Carbon Dioxide 22 mmol/L (22-29); Chloride 107 mmol/L (98-107); Glomerular Filtration Rate 69.3 mL/min (90-130); Glucose 85 mg/dL (65-115); Potassium 4.2 mmol/L (3.5-5.1); Sodium 138 mmol/L (136-145)
[2022-12-18 09:20] LABS: Creatinine Urine, Random 194 mg/dL (28-217)
[2022-12-18 09:25] LABS: Parathyroid Hormone 29.9 pg/mL (15-65)
[2022-12-18 09:33] LABS: Microalbum Creatinine Ratio Ur 531 mg/dL (0-20); Microalbumin Random Urine 103 ug/dL (0-20)
[2022-12-18 09:34] LABS: 25 Hydroxy Vitamin D 24 ng/mL (30-100)
== END 2022-12-18 07:59 | disposition home or self-care (01) ==
LOC: LAB 08:21
PROVIDERS: PCP Family Medicine; Visit Provider Registered Nurse
DX: E55.9 Vitamin D deficiency, unspecified (principal); N18.31 Chronic kidney disease, stage 3a
CPT/HCPCS: 36415; 80069; 82044; 82306; 82310; 83970; 85025

== ENCOUNTER 2023-03-04 09:01 | Emergency (ER) | payer MEDICARE, MEDICAID, SELFPAY ==
[2023-03-04 09:08] VITALS: BP 137/97; PULSE 78; RESP 22; TEMP 36.6; O2SAT 99
--- NOTE | 2023-03-04 09:11 | W.ED.ANXIETY ---
HPI - Anxiety General: Chief Complaint: Anxiety Stated Complaint: anxiety Time Seen by Provider: 03/04/23 09:02 Source: patient Mode of arrival: ambulatory Limitations: no limitations History of Present Illness: Patient is a 42-year-old female presents to ED today for a complaint of left arm numbness and perioral/tongue paresthesias. Patient states over the past 6 weeks or so she has had approximately 6-7 episodes where she will develop left arm numbness and perioral paresthesias. She states she has had one episode that affected the right upper extremity instead. Episodes last for approximately 5 minutes before subsiding on their own. She states her symptoms are always associated with a headache. She states she sought medical treatment at [facility] several weeks ago and was subsequently admitted to the hospital for TIA/CVA work-up. She does have a history of chronic migraines. She states while at [facility] they told her that she had 3 mini strokes . Patient was placed on aspirin, Plavix, and a statin and recommended follow-up with neurology. FOR[facility], LATER [facility] ED PFSH: Social History Smoking and tobacco status: current every day smoker cigarettes Packs smoked per day: 1 Alcohol intake: never Substance/Drug Use: never Course Vital Signs: Vital signs: Vital Signs Temperature 97.9 F 03/04/23 09:08 Pulse Rate 72 03/04/23 10:47 Respiratory Rate 22 H 03/04/23 09:08 Blood Pressure 125/84 03/04/23 10:47 Pulse Oximetry 99 03/04/23 10:47 Oxygen Delivery Me thod Room Air 03/04/23 09:08 MDM - Anxiety Lab Data 03/04/23 10:04 03/04/23 10:04 Laboratory Results WBC 4.5 10^3/uL (4.0-10.0) 03/04/23 10:04 RBC 4.48 10^6/uL (4.1-5.3) 03/04/23 10:04 Hgb 12.8 g/dL (11.5-15.3) 03/04/23 10:04 Hct 41.8 % (37.0-47.0) 03/04/23 10:04 MCV 93.3 fl (81-99) 03/04/23 10:04 MCH 28.6 pg (28.0-34.0) 03/04/23 10:04 MCHC 30.6 g/dL (30.0-36.0) 03/04/23 10:04 RDW 13.2 % (12.1-15.1) 03/04/23 10:04 Plt Count 150 10^3/cmm (130-400) 03/04/23 10:04 MPV 11.7 fL (7.4-10.4) H 03/04/23 10:04 Neut % (Auto) 74.2 % 03/04/23 10:04 Lymph % (Auto) 14.2 % 03/04/23 10:04 [place] % (Auto) 9.1 % 03/04/23 10:04 Eos % (Auto) 1.8 % 03/04/23 10:04 Baso % (Auto) 0.7 % 03/04/23 10:04 Neut # (Auto) 3.36 10^3/uL (1.8-7.7) 03/04/23 10:04 Lymph # (Auto) 0.6 10^3/uL (0.8-4.8) L 03/04/23 10:04 [place] # (Auto) 0.4 10^3/uL (0.2-0.9) 03/04/23 10:04 Eos # (Auto) 0.1 10^3/uL (0.0-0.8) 03/04/23 10:04 Baso # (Auto) 0.0 10^3/uL (0.0-0.1) 03/04/23 10:04 Nucleated RBC % (auto) 0 % 03/04/23 10:04 Nucleated RBCs # 0.0 /100WBC 03/04/23 10:04 Discharge Plan Discharge Condition: Stable Prescriptions: No Action mycophenolate mofetil 500 mg tablet 1,500 mg PO BID hydroxychloroquine 200 mg tablet 200 mg PO BID Rx Instructions: TAKE WITH MEALS. doxepin 10 mg capsule 30 mg PO DAILY atorvastatin 40 mg tablet 40 mg PO DAILY buspirone 5 mg tablet 5 mg PO BID rizatriptan 10 mg tablet See Rx Instructions .ROUTE .COMPLEX Rx Instructions: 10 mg orally daily at onset of headache, may repeat in 2 hours if needed prednisone 5 mg tablet See Rx Instructions .ROUTE .COMPLEX Rx Instructions: TAKE 3 BY MOUTH DAILY FOR 5 DAYS, 2 DAILY FOR 5 DAYS, THEN 1 DAILY FOR 5 DAYS clopidogrel 75 mg tablet 75 mg PO DAILY spironolactone 25 mg tablet 25 mg PO DAILY levothyroxine 75 mcg tablet 75 mcg PO DAILY cyproheptadine 4 mg tablet 4 mg PO DAILY amitriptyline 25 mg tablet 50 mg PO BEDTIME lisinopril 5 mg tablet 5 mg PO DAILY pregabalin 200 mg capsule 200 mg PO BID Benlysta 200 mg/mL auto-injector 200 mg SUBCUT Q7D Aspir-81 81 mg Tablet,Delayed Release (Dr/Ec) 81 mg PO DAILY sodium bicarbonate 650 mg tablet 1,300 mg PO BID FeroSul 325 mg (65 mg iron) tablet 325 mg PO DAILY nicotine 21 mg/24 hr Patch 24 Hour 1 patch TRANSDERMAL DAILY Referrals: Lidia Bloom DO [Primary Care Provider] - Coding Level of Care Code ED Correctional Therapy Director for Cesar Talley
--- NOTE | 2023-03-04 09:49 | ECG_ITS ---
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 Measurements Intervals [place] Rate: 71 P: 58 WV: 153 QRS: 62 QRSD: 96 T: 50 QT: 405 QTc: 443 Interpretive Statements SINUS RHYTHM Compared to ECG 10/29/2018 00:59:11 T-wave abnormality no longer present Electronically Signed On 03-04-2023 16:08:28 CDT by Jae Bender M.D. [id number]
[2023-03-04] MEDS: LORazepam 2 mg/mL INJ 1 mL 0.5 MG IVP (09:56)
[2023-03-04 10:35] LABS: Basophils % 0.7 %; Eosinophils # 0.1 10^3/uL (0.0-0.8); Eosinophils % 1.8 %; Hematocrit 41.8 % (37.0-47.0); Hemoglobin 12.8 g/dL (11.5-15.3); Lymphocytes # 0.6 10^3/uL (0.8-4.8); Lymphocytes % 14.2 %; Mean Corpuscular HGB Conc 30.6 g/dL (30.0-36.0); Mean Corpuscular Hemoglobin 28.6 pg (28.0-34.0); Mean Corpuscular Volume 93.3 fl (81-99); Mean Platelet Volume 11.7 fL (7.4-10.4); Monocytes # 0.4 10^3/uL (0.2-0.9); Monocytes % 9.1 %; Neutrophils # 3.36 10^3/uL (1.8-7.7); Neutrophils % 74.2 %; Nucleated Red Blood Cells % 0 %; Platelet Count 150 10^3/cmm (130-400); Red Blood Count 4.48 10^6/uL (4.1-5.3); Red Cell Distribution Width 13.2 % (12.1-15.1); White Blood Count 4.5 10^3/uL (4.0-10.0)
--- NOTE | 2023-03-04 10:43 | PC.PHAR ---
CONFIRMED MED LIST WITH PT WHO WAS UNSURE OF SOME MEDS. CONFIRMED WITH PHARMACY ALL MEDICATIONS AND DIRECTIONS.
[2023-03-04 10:47] VITALS: BP 125/84; PULSE 72; O2SAT 99
[2023-03-04 11:03] LABS: Alanine Aminotransferase 14 U/L (0-33); Albumin Level 3.2 g/dL (3.5-5.2); Alkaline Phosphatase 61 U/L (35-105); Blood Urea Nitrogen 14 mg/dL (6-20); Calcium 8.9 mg/dL (8.5-10.5); Carbon Dioxide 21 mmol/L (22-29); Chloride 108 mmol/L (98-107); Globulin 3.1 g/dL (1.3-4.6); Glomerular Filtration Rate 61.4 mL/min (90-130); Glucose 96 mg/dL (65-115); Osmolality Calculated 288 mOsm/kg (285-295); Sodium 139 mmol/L (136-145); Thyroid Stimulating Hormone 1.62 uIU/mL (0.27-4.20); Total Bilirubin 0.2 mg/dL (0.15-1.2); Total Protein 6.3 g/dL (6.6-8.7)
[2023-03-04 11:04] LABS: Anion Gap 14.4 (5-19); Potassium 4.4 mmol/L (3.5-5.1)
[2023-03-04 11:05] LABS: Aspartate Amino Transferase 18 U/L (0-32)
--- NOTE | 2023-03-04 11:09 | ED_ITS ---
Documented by User: CHARLENE Zimmer 03/04/23 12:00 HPI - Neuro Symptoms/Deficit General: Chief Complaint: Anxiety Stated Complaint: anxiety Time Seen by Provider: 03/04/23 09:02 Source: patient Mode of arrival: EMS Limitations: no limitations History of Present Illness: Patient is a 42-year-old female presents to ED today for a complaint of left arm numbness and perioral/tongue paresthesias. Patient states over the past 6 weeks or so she has had approximately 6-7 episodes where she will develop left arm numbness and perioral paresthesias. She states she has had one episode that affected the right upper extremity instead. Episodes last for approximately 5 minutes before subsiding on their own. She states her symptoms are always associated with a headache. She states she sought medical treatment at [facility] several weeks ago and was subsequently admitted to the hospital for TIA/CVA work-up. She does have a history of chronic migraines. She states while at [facility] they told her that she had 3 mini strokes although neurology also thought complex migraines could potentially be explanation for symptoms. Patient was placed on aspirin, Plavix, and a statin and recommended follow-up with neurology. Upon arrival to the ED symptoms have resolved. She states she feels anxious. Onset (ago): hour(s) Location: left arm History of same: Yes Severity: mild Quality: numb and tingling Relieving factors: time Exacerbating factors: none Context: gradual onset On Anticoagulants: No Associated symptoms: Reports headache(s) and other (anxiety); Deny chest pain, malaise, nausea, syncope, vertigo or vomiting Treatments Prior to Arrival: none Review of Systems Const: Denies: fever(s), chills, body aches, fatigue or malaise Eyes: Denies: change in vision, blurry vision, photophobia, floaters or seeing flashes Card: Denies: chest pain, palpitations, irregular heart rhythm, edema, swelling of feet/ankles, lightheadedness, syncope, pre-syncope, dyspnea on exertion, orthopnea, leg pain with exertion or acrocyanosis Resp: Denies: dyspnea GI: Denies: abdominal pain, nausea, vomiting or diarrhea Musc: Denies: neck pain, back pain, extremity pain, extremity swelling, joint pain, joint swelling, joint redness, joint warmth or limited range of motion Skin/Breast: Denies: rash Neuro: Reports: headache(s), numbness in extremities and sensory changes; Denies: weakness in extremities, lack of coordination, difficulty walking, frequent falls, dizziness, vertigo, confusion, behavioral changes, Slurred speech present, difficulty communicating thoughts or seizure-like activity PFSH ED PFSH: Social History Smoking and tobacco status: current every day smoker cigarettes Packs smoked per day: 1 Alcohol intake: never Substance/Drug Use: never NIH stroke score NIHSS: Level Of Consciousness - 1a: 0 Level Of Consciousness Questions - 1b: Both Correct Level Of Consciousness Commands - 1c: Both Correct Best Gaze - 2: Normal Visual Huizar - 3: No Visual Loss Facial Palsy - 4: N ormal Motor Arm Right - 5: No Drift Motor Arm Left - 5: No Drift Motor Leg Right - 6: No Drift Motor Leg Left - 6: No Drift Limb Ataxia - 7: Absent Sensory - 8: Normal Best Language - 9: No Aphasia Dysarthia - 10: Normal Extinction And Inattention - 11: 0 Score: Total Score: 0 Course Consultations: Consultation #1: Dr. Angel-agrees with our plan of not obtaining additional imaging/work up at this time-recommended neurology follow up in the next 1-2 weeks and graciously stated either herself or Dr. Valentin could see her Vital Signs: Vital signs: Vital Signs Temperature 97.9 F 03/04/23 09:08 Pulse Rate 72 03/04/23 11:59 Respiratory Rate 22 H 03/04/23 09:08 Blood Pressure 125/84 03/04/23 11:59 Pulse Oximetry 99 03/04/23 11:59 Oxygen Delivery Me thod Room Air 03/04/23 09:08 MDM - Neuro Symptoms/Deficit Medical Decision Making Records from [facility] were obtained. Patient underwent CT a head and neck which showed a small right cerebellar infarct. MRI impression was findings consistent with 3 small subcentimeter acute to subacute ischemic infarcts in the right superior cerebellum without associated mass effect. Patient was discharged home on aspirin, Plavix, atorvastatin. She was also discharged with a Holter monitor that she got yesterday. Her dose of amitriptyline was increased. They recommended follow-up with neurology as an outpatient. Patient states she does not want to follow-up through [facility] and wants to follow-up with neurology at [facility] in [place]. She states she will speak to her primary care provider to obtain this referral. Spoke with Dr. Rodriguez in regards to case. Patient's symptoms certainly do not sound consistent with a cerebellar infarct. Certainly migraine variant or complex migraine is a possibility. Recommend she continue her current therapy and follow-up with neurology as soon as possible. Return ED precautions given. Lab Data 03/04/23 10:04 03/04/23 10:04 Laboratory Results WBC 4.5 10^3/uL (4.0-10.0) 03/04/23 10:04 RBC 4.48 10^6/uL (4.1-5.3) 03/04/23 10:04 Hgb 12.8 g/dL (11.5-15.3) 03/04/23 10:04 Hct 41.8 % (37.0-47.0) 03/04/23 10:04 MCV 93.3 fl (81-99) 03/04/23 10:04 MCH 28.6 pg (28.0-34.0) 03/04/23 10:04 MCHC 30.6 g/dL (30.0-36.0) 03/04/23 10:04 RDW 13.2 % (12.1-15.1) 03/04/23 10:04 Plt Count 150 10^3/cmm (130-400) 03/04/23 10:04 MPV 11.7 fL (7.4-10.4) H 03/04/23 10:04 Neut % (Auto) 74.2 % 03/04/23 10:04 Lymph % (Auto) 14.2 % 03/04/23 10:04 [place] % (Auto) 9.1 % 03/04/23 10:04 Eos % (Auto) 1.8 % 03/04/23 10:04 Baso % (Auto) 0.7 % 03/04/23 10:04 Neut # (Auto) 3.36 10^3/uL (1.8-7.7) 03/04/23 10:04 Lymph # (Auto) 0.6 10^3/uL (0.8-4.8) L 03/04/23 10:04 [place] # (Auto) 0.4 10^3/uL (0.2-0.9) 03/04/23 10:04 Eos # (Auto) 0.1 10^3/uL (0.0-0.8) 03/04/23 10:04 Baso # (Auto) 0.0 10^3/uL (0.0-0.1) 03/04/23 10:04 Nucleated RBC % (auto) 0 % 03/04/23 10:04 Nucleated RBCs # 0.0 /100WBC 03/04/23 10:04 Sodium 139 mmol/L (136-145) 03/04/23 10:04 Potassium 4.4 mmol/L (3.5-5.1) 03/04/23 10:04 Chloride 108 mmol/L (98-107) H 03/04/23 10:04 Carbon Dioxide 21 mmol/L (22-29) L 03/04/23 10:04 Anion Gap 14.4 (5-19) 03/04/23 10:04 BUN 14 mg/dL (6-20) 03/04/23 10:04 Creatinine 1.0 mg/dL (0.5-0.9) H 03/04/23 10:04 GFR Calculation 61.4 mL/min (90-130) L 03/04/23 10:04 Glucose 96 mg/dL (65-115) 03/04/23 10:04 Calculated Osmolality 288 mOsm/kg (285-295) 03/04/23 10:04 Calcium 8.9 mg/dL (8.5-10.5) 03/04/23 10:04 Total Bilirubin 0.2 mg/dL (0.15-1.2) 03/04/23 10:04 AST 18 U/L (0-32) 03/04/23 10:04 ALT 14 U/L (0-33) 03/04/23 10:04 Alkaline Phosphatase 61 U/L (35-105) 03/04/23 10:04 Total Protein 6.3 g/dL (6.6-8.7) L 03/04/23 10:04 Albumin 3.2 g/dL (3.5-5.2) L 03/04/23 10:04 Globulin 3.1 g/dL (1.3-4.6) 08/03/23 10:04 TSH 1.62 uIU/mL (0.27-4.20) 03/04/23 10:04 Discharge Plan Discharge Patient Disposition: Home Clinical Impression: Anxiety, Neurological complaint Migraine Qualifiers: Migraine type: unspecified Status migrainosus presence: without status migrainosus Intractability: not intractable Qualified Code(s): G43.909 - Migraine, unspecified, not intractable, without status migrainosus Condition: Stable Prescriptions: No Action mycophenolate mofetil 500 mg tablet 1,500 mg PO BID hydroxychloroquine 200 mg tablet 200 mg PO BID Rx Instructions: TAKE WITH MEALS. doxepin 10 mg capsule 30 mg PO DAILY atorvastatin 40 mg tablet 40 mg PO DAILY buspirone 5 mg tablet 5 mg PO BID rizatriptan 10 mg tablet See Rx Instructions .ROUTE .COMPLEX Rx Instructions: 10 mg orally daily at onset of headache, may repeat in 2 hours if needed prednisone 5 mg tablet See Rx Instructions .ROUTE .COMPLEX Rx Instructions: TAKE 3 BY MOUTH DAILY FOR 5 DAYS, 2 DAILY FOR 5 DAYS, THEN 1 DAILY FOR 5 DAYS clopidogrel 75 mg tablet 75 mg PO DAILY spironolactone 25 mg tablet 25 mg PO DAILY levothyroxine 75 mcg tablet 75 mcg PO DAILY cyproheptadine 4 mg tablet 4 mg PO DAILY amitriptyline 25 mg tablet 50 mg PO BEDTIME lisinopril 5 mg tablet 5 mg PO DAILY pregabalin 200 mg capsule 200 mg PO BID Benlysta 200 mg/mL auto-injector 200 mg SUBCUT Q7D Aspir-81 81 mg Tablet,Delayed Release (Dr/Ec) 81 mg PO DAILY sodium bicarbonate 650 mg tablet 1,300 mg PO BID FeroSul 325 mg (65 mg iron) tablet 325 mg PO DAILY nicotine 21 mg/24 hr Patch 24 Hour 1 patch TRANSDERMAL DAILY Discharge Orders: Discharge ED (Routine); Ordered 03/04/23 Ordered By: Rina Monique Referrals: Lidia Bloom DO [Primary Care Provider] - Activity Restrictions/Additional Instructions: As we discussed please continue your aspirin, Plavix, and atorvastatin. We have offered you neurology follow-up here but you have declined. You were recommended to follow-up with neurology through [facility] but you are requesting neurology follow-up through [facility] in [place]. You stated you would contact your primary care provider to help you with this referral. You may also speak to them in regards to anxiety medication. Coding Level of Care Code ED Business Systems Technician for Chg Fwd Documented by User: Teodoro Rodriguez DO 03/05/23 09:45 HPI - Neuro Symptoms/Deficit General: Chief Complaint: Anxiety Stated Complaint: anxiety Time Seen by Provider: 03/04/23 09:02 [facility] ED PFSH: Social History Smoking and tobacco status: current every day smoker cigarettes Packs smoked per day: 1 Alcohol intake: never Substance/Drug Use: never NIH stroke score Score: Total Score: 0 Course Vital Signs: Vital signs: Vital Signs Temperature 97.9 F 03/04/23 09:08 Pulse Rate 72 03/04/23 11:59 Respiratory Rate 22 H 03/04/23 09:08 Blood Pressure 125/84 03/04/23 11:59 Pulse Oximetry 99 03/04/23 11:59 Oxygen Delivery Me thod Room Air 03/04/23 09:08 MDM - Neuro Symptoms/Deficit Medical Decision Making Records from [facility] were obtained. Patient underwent CT a head and neck which showed a small right cerebellar infarct. MRI impression was findings consistent with 3 small subcentimeter acute to subacute ischemic infarcts in the right superior cerebellum without associated mass effect. Patient was discharged home on aspirin, Plavix, atorvastatin. She was also discharged with a Holter monitor that she got yesterday. Her dose of amitriptyline was increased. They recommended follow-up with neurology as an outpatient. Patient states she does not want to follow-up through [facility] and wants to follow-up with neurology at [facility] in [place]. She states she will speak to her primary care provider to obtain this referral. Spoke with Dr. Rodriguez in regards to case. Patient's symptoms certainly do not sound consistent with a cerebellar infarct. Certainly migraine variant or complex migraine is a possibility. Recommend she continue her current therapy and follow-up with neurology as soon as possible. Return ED precautions given. Chart reviewed and patient discussed with midlevel. Agree with assessment and plan. Lab Data 03/04/23 10:04 03/04/23 10:04 Laboratory Results WBC 4.5 10^3/uL (4.0-10.0) 03/04/23 10:04 RBC 4.48 10^6/uL (4.1-5.3) 03/04/23 10:04 Hgb 12.8 g/dL (11.5-15.3) 03/04/23 10:04 Hct 41.8 % (37.0-47.0) 03/04/23 10:04 MCV 93.3 fl (81-99) 03/04/23 10:04 MCH 28.6 pg (28.0-34.0) 03/04/23 10:04 MCHC 30.6 g/dL (30.0-36.0) 03/04/23 10:04 RDW 13.2 % (12.1-15.1) 03/04/23 10:04 Plt Count 150 10^3/cmm (130-400) 03/04/23 10:04 MPV 11.7 fL (7.4-10.4) H 03/04/23 10:04 Neut % (Auto) 74.2 % 03/04/23 10:04 Lymph % (Auto) 14.2 % 03/04/23 10:04 [place] % (Auto) 9.1 % 03/04/23 10:04 Eos % (Auto) 1.8 % 03/04/23 10:04 Baso % (Auto) 0.7 % 03/04/23 10:04 Neut # (Auto) 3.36 10^3/uL (1.8-7.7) 03/04/23 10:04 Lymph # (Auto) 0.6 10^3/uL (0.8-4.8) L 03/04/23 10:04 [place] # (Auto) 0.4 10^3/uL (0.2-0.9) 03/04/23 10:04 Eos # (Auto) 0.1 10^3/uL (0.0-0.8) 03/04/23 10:04 Baso # (Auto) 0.0 10^3/uL (0.0-0.1) 03/04/23 10:04 Nucleated RBC % (auto) 0 % 03/04/23 10:04 Nucleated RBCs # 0.0 /100WBC 03/04/23 10:04 Sodium 139 mmol/L (136-145) 03/04/23 10:04 Potassium 4.4 mmol/L (3.5-5.1) 03/04/23 10:04 Chloride 108 mmol/L (98-107) H 03/04/23 10:04 Carbon Dioxide 21 mmol/L (22-29) L 03/04/23 10:04 Anion Gap 14.4 (5-19) 03/04/23 10:04 BUN 14 mg/dL (6-20) 03/04/23 10:04 Creatinine 1.0 mg/dL (0.5-0.9) H 03/04/23 10:04 GFR Calculation 61.4 mL/min (90-130) L 03/04/23 10:04 Glucose 96 mg/dL (65-115) 03/04/23 10:04 Calculated Osmolality 288 mOsm/kg (285-295) 03/04/23 10:04 Calcium 8.9 mg/dL (8.5-10.5) 03/04/23 10:04 Total Bilirubin 0.2 mg/dL (0.15-1.2) 03/04/23 10:04 AST 18 U/L (0-32) 03/04/23 10:04 ALT 14 U/L (0-33) 03/04/23 10:04 Alkaline Phosphatase 61 U/L (35-105) 03/04/23 10:04 Total Protein 6.3 g/dL (6.6-8.7) L 03/04/23 10:04 Albumin 3.2 g/dL (3.5-5.2) L 03/04/23 10:04 Globulin 3.1 g/dL (1.3-4.6) 03/04/23 10:04 TSH 1.62 uIU/mL (0.27-4.20) 03/04/23 10:04 Discharge Plan Discharge Patient Disposition: Home Clinical Impression: Anxiety, Neurological complaint Migraine Qualifiers: Migraine type: unspecified Status migrainosus presence: without status migrainosus Intractability: not intractable Qualified Code(s): G43.909 - Migraine, unspecified, not intractable, without status migrainosus Condition: Stable Prescriptions: No Action mycophenolate mofetil 500 mg tablet 1,500 mg PO BID hydroxychloroquine 200 mg tablet 200 mg PO BID Rx Instructions: TAKE WITH MEALS. doxepin 10 mg capsule 30 mg PO DAILY atorvastatin 40 mg tablet 40 mg PO DAILY buspirone 5 mg tablet 5 mg PO BID rizatriptan 10 mg tablet See Rx Instructions .ROUTE .COMPLEX Rx Instructions: 10 mg orally daily at onset of headache, may repeat in 2 hours if needed prednisone 5 mg tablet See Rx Instructions .ROUTE .COMPLEX Rx Instructions: TAKE 3 BY MOUTH DAILY FOR 5 DAYS, 2 DAILY FOR 5 DAYS, THEN 1 DAILY FOR 5 DAYS clopidogrel 75 mg tablet 75 mg PO DAILY spironolactone 25 mg tablet 25 mg PO DAILY levothyroxine 75 mcg tablet 75 mcg PO DAILY cyproheptadine 4 mg tablet 4 mg PO DAILY amitriptyline 25 mg tablet 50 mg PO BEDTIME lisinopril 5 mg tablet 5 mg PO DAILY pregabalin 200 mg capsule 200 mg PO BID Benlysta 200 mg/mL auto-injector 200 mg SUBCUT Q7D Aspir-81 81 mg Tablet,Delayed Release (Dr/Ec) 81 mg PO DAILY sodium bicarbonate 650 mg tablet 1,300 mg PO BID FeroSul 325 mg (65 mg iron) tablet 325 mg PO DAILY nicotine 21 mg/24 hr Patch 24 Hour 1 patch TRANSDERMAL DAILY Discharge Orders: Discharge ED (Routine); Ordered 03/04/23 Ordered By: Rina Monique Referrals: Lidia Bloom, [Primary Care Provider] - Activity Restrictions/Additional Instructions: As we discussed please continue your aspirin, Plavix, and atorvastatin. We have offered you neurology follow-up here but you have declined. You were recomme nded to follow-up with neurology through [facility] but you are requesting neurology follow-up through [facility] in [place]. You stated you would contact your primary care provider to help you with this referral. You may also speak to them in regards to anxiety medication. Coding Level of Care Code ED Business Systems Technician for Cesar Talley
[2023-03-04 11:59] VITALS: BP 125/84; PULSE 72; O2SAT 99
== END 2023-03-04 11:59 | disposition home or self-care (01) ==
PROVIDERS: Emergency Provider Physician Assistant; PCP Family Medicine
DX: F41.9 Anxiety disorder, unspecified (principal); G43.909 Migraine, unspecified, not intractable, without status migrainosus; R29.90 Unspecified symptoms and signs involving the nervous system; Z79.82 Long term (current) use of aspirin; Z79.02 Long term (current) use of antithrombotics/antiplatelets; F17.210 Nicotine dependence, cigarettes, uncomplicated
CPT/HCPCS: 36415; 80053; 84443; 85025; 93005; 96375; 96376; 99284; J2060

== ENCOUNTER → 2023-04-08 07:47 | Outpatient (BNVA) | payer MEDICARE, MEDICAID, SELFPAY | PROVIDERS: PCP Family Medicine; Referring Provider Nurse Practitioner; Visit Provider Psychiatry & Neurology Neurology | DX: I63.9 Cerebral infarction, unspecified (principal); G43.919 Migraine, unspecified, intractable, without status migrainosus | CPT/HCPCS: 99203 ==

== ENCOUNTER → 2023-07-05 15:04 | Outpatient (BNVA) | payer MEDICARE, MEDICAID, SELFPAY | PROVIDERS: PCP Family Medicine; Visit Provider Psychiatry & Neurology Neurology | DX: G43.019 Migraine without aura, intractable, without status migrainosus (principal) | CPT/HCPCS: 99212 ==

== ENCOUNTER 2023-08-13 21:13 | Emergency (ER) | payer MEDICARE, MEDICAID, SELFPAY ==
[2023-08-13 21:25] VITALS: BP 134/87; PULSE 83; RESP 18; TEMP 36.7; O2SAT 100; BMI 47.4
[2023-08-13] MEDS: ciprofloxacin-dexameth Otic Susp 7.5 mL Btl 4 DROP EAR-LEFT (23:09)
[2023-08-13] MEDS: amoxicillin 500 mg Capsule PO (23:09)
[2023-08-13 23:12] VITALS: PULSE 93; RESP 18; O2SAT 98
--- NOTE | 2023-08-14 01:14 | W.ED.EAR ---
HPI - Ear Problem General: Chief complaint: Ear Stated complaint: L ear Pain cant hear Time Seen by Provider: 08/13/23 22:31 Source: patient Mode of arrival: ambulatory Limitations: no limitations History of Present Illness: Patient presents emergency department today for evaluation treatment of complaints of left ear pain and decreased hearing. She noticed onset yesterday and has not noticed any drainage from the ear. She has not been running fever but has had nasal congestion recently. Patient reports trying to irrigate the ear out without any success. However, she states she has not inserted any items into the ear canal. Review of Systems General: Reports: 10 or more systems reviewed and unremarkable except in HPI and below PFSH ED PFSH: Social History Smoking and tobacco/nicotine status: current every day tobacco/nicotine user cigarettes Packs smoked per day: 1 Alcohol intake: never Substance/Drug Use: never Physical Exam Const: COMMON NORMALS: no acute distress, patient oriented x3 and alert HENMT: OTHER: Right TM is nonerythematous with good light reflex. EACs clear. Left TM is dull, erythematous, and retracted. Patient's EAC with an obvious, fresh abrasion noted to the posterior mid canal with skin abraised flap and bright red blood at the wound site noted. There is surrounding erythema and some purulent accumulation visible. Eye: COMMON NORMALS: Equal, round and reactive pupils present, EOMs intact bilaterally and conjunctivae normal CONJUNCTIVA: Yes conjunctivae normal PUPIL: Yes Equal, round and reactive pupils present Neck/C-Spine: COMMON NORMALS: no JVD Lymph: LYMPHATIC: no lymphadenopathy noted Resp: COMMON NORMALS: normal respiratory effort, No retractions and No use of accessory muscles Cardio: COMMON NORMALS: no JVD and regular rate RATE: regular rate : COMMON NORMALS: Yes no CVA tenderness BLADDER/KIDNEY EXAM: Yes no CVA tenderness Back/Pelvis: COMMON NORMALS: no CVA tenderness, thoracic and lumbar spine normal to inspection and thoraco-lumbar ROM normal Extremity: COMMON NORMALS: normal to inspection, full ROM and no pedal edema Neuro: COMMON NORMALS: patient oriented x3 SENSORIUM/ORIENTATION: Yes alert Skin: COMMON NORMALS: no rashes or lesions noted and turgor normal GENERAL SKIN EXAM: no rashes or lesions noted and turgor normal Course Vital Signs: Vital signs: Vital Signs Temperature 98.1 F 08/13/23 21:25 Pulse Rate 93 08/13/23 23:12 Respiratory Rate 18 08/13/23 23:12 Blood Pressure 134/87 08/13/23 21:25 Pulse Oximetry 98 08/13/23 23:12 Oxygen Delivery Me thod Room Air 08/13/23 21:25 MDM - Ear Medical Decision Making Patient's evaluation today reveals 2 concerns. Patient has a relatively large abrasion to the posterior wall of the mid EAC. There is a visible skin flap still attached and bright red blood at the wound site. However, there is concerns that there is signs of infection around this area now as well. Patient's TM is dull, erythematous, and retracted. Based on these findings, patient will be treated with both oral antibiotics and drops. First round of medications provided here in the emergency department tonight with the rest to be picked up and continued in the morning. I did discuss my findings with the patient. Encouraged her not to insert anything other than her medication into her ear at this time. Also requested a follow-up appointment with her primary care doctor after the course of treatment is completed to assure ulcer healing and resolution of infections. Patient verbalizes understanding and agreement to treatment plan. Differential Diagnosis Likely otitis externa and otitis media; Unlikely foreign body in ear, ruptured TM or cerumen impaction No radiology studies performed this visit Discharge Plan Discharge Patient Disposition: Home Clinical Impression: Otitis externa of left ear, Abrasion of left ear canal with infection, Acute serous otitis media of left ear Condition: Stable Prescriptions: New amoxicillin 500 mg capsule 500 mg PO TID 10 Days Qty: 30 0RF No Action Aimovig Autoinjector 70 mg/mL auto-injector 70 mg SUBCUT .monthly Qty: 1 3RF mycophenolate mofetil 500 mg tablet 1,500 mg PO BID hydroxychloroquine 200 mg tablet 200 mg PO BID Rx Instructions: TAKE WITH MEALS. doxepin 10 mg capsule 30 mg PO DAILY atorvastatin 40 mg tablet 40 mg PO DAILY clopidogrel 75 mg tablet 75 mg PO DAILY spironolactone 25 mg tablet 25 mg PO DAILY levothyroxine 75 mcg tablet 75 mcg PO DAILY cyproheptadine 4 mg tablet 4 mg PO DAILY amitriptyline 25 mg tablet 50 mg PO BEDTIME lisinopril 5 mg tablet 5 mg PO DAILY pregabalin 200 mg capsule 200 mg PO BID Benlysta 200 mg/mL auto-injector 200 mg SUBCUT Q7D Aspir-81 81 mg Tablet,Delayed Release (Dr/Ec) 81 mg PO DAILY sodium bicarbonate 650 mg tablet 1,300 mg PO BID FeroSul 325 mg (65 mg iron) tablet 325 mg PO DAILY nicotine 21 mg/24 hr Patch 24 Hour 1 patch TRANSDERMAL DAILY buspirone 5 mg tablet 7.5 mg PO TID Discharge Orders: Discharge ED (Routine); Ordered 08/13/23 Ordered By: Opal Pastor Referrals: Lidia Bloom, [Primary Care Provider] - Discharge Diet: Usual diet Discharge Activity: Increase activity as tolerated Patient Instructions: Otitis Externa - Adult, Otitis Media - Adult, Warm Compress or Soak (ED) Activity Restrictions/Additional Instructions: As discussed during your evaluation, you have a pretty significant abrasion of your ear canal with bleeding present and concerns for infection of the canal. You also have significant retraction of your left eardrum suspicious for ear infection. In order to treat the abrasion and infection of the ear canal we are providing you with drops. However, to treat your ear infection we are providing oral antibiotics. I did look through your medications list and you should be able to tolerate these medications without contraindication with your chronic meds. Continue to monitor over the next several days for any change in condition including draining or bleeding from the ear canal, swelling behind your ear, or new onset fever. If any of these occur you need to be seen and reevaluated again. Otherwise, follow-up with your primary care doctor after the course of antibiotics is complete to assure full resolution of your infection. Continue using the eardrops provided to you from the emergency department: 4 drops, twice a day until antibiotic is gone. Coding Level of Care Code ED Computer Network Engineer for Cesar Talley
== END 2023-08-13 23:14 | disposition home or self-care (01) ==
PROVIDERS: Emergency Provider Physician Assistant; PCP Family Medicine
DX: H60.92 Unspecified otitis externa, left ear (principal); S00.412A Abrasion of left ear, initial encounter; H65.02 Acute serous otitis media, left ear; Z79.82 Long term (current) use of aspirin; Z79.02 Long term (current) use of antithrombotics/antiplatelets; Z72.0 Tobacco use; X58.XXXA Exposure to other specified factors, initial encounter
CPT/HCPCS: 99283

== ENCOUNTER → 2023-09-28 14:34 | Outpatient (BNVA) | payer MEDICARE, MEDICAID, SELFPAY | PROVIDERS: PCP Family Medicine; Visit Provider Podiatrist Foot & Ankle Surgery | DX: L60.0 Ingrowing nail (principal); R39.9 Unspecified symptoms and signs involving the genitourinary system | CPT/HCPCS: 11750; 81000; 99203; A6219 ==

== ENCOUNTER → 2023-10-13 11:03 | Outpatient (BNVA) | payer MEDICARE, MEDICAID, SELFPAY | PROVIDERS: PCP Family Medicine; Visit Provider Podiatrist Foot & Ankle Surgery | DX: L60.0 Ingrowing nail (principal) | CPT/HCPCS: 99213 ==

== ENCOUNTER → 2024-02-28 13:26 | Outpatient (BNVA) | payer MEDICARE, MEDICAID, SELFPAY | PROVIDERS: PCP Family Medicine; Visit Provider Psychiatry & Neurology Neurology | DX: G43.019 Migraine without aura, intractable, without status migrainosus (principal) | CPT/HCPCS: 99212 ==

== ENCOUNTER → 2024-08-28 12:53 | Outpatient (BNVA) | payer MEDICARE, MEDICAID, SELFPAY | PROVIDERS: PCP Family Medicine; Visit Provider Psychiatry & Neurology Neurology | DX: G43.019 Migraine without aura, intractable, without status migrainosus (principal) | CPT/HCPCS: 99212 ==

== ENCOUNTER → 2025-02-26 13:45 | Outpatient (BNVA) | payer MEDICARE, MEDICAID, SELFPAY | PROVIDERS: PCP Family Medicine; Visit Provider Psychiatry & Neurology Neurology | DX: G43.019 Migraine without aura, intractable, without status migrainosus (principal) | CPT/HCPCS: 99212 ==

== ENCOUNTER 2025-04-26 12:57 | Outpatient (CLI) | payer MEDICARE, MEDICAID, SELFPAY ==
[2025-04-26 13:20] LABS: Hematocrit 45.9 % (36-47); Hemoglobin 14.40 g/dL (11.27-16.99); Mean Corpuscular HGB Conc 31.4 g/dL (30-55); Mean Corpuscular Hemoglobin 29.2 pg (27-33); Mean Corpuscular Volume 93.1 fl (85-98); Nucleated Red Blood Cells % 0 %; Platelet Count 211 10^3/cmm (157-399); Red Blood Count 4.93 10^6/uL (3.85-5.65); White Blood Count 6.13 10^3/uL (3.29-11.43)
[2025-04-26 13:49] LABS: Alanine Aminotransferase 20 U/L (0-33)
[2025-04-26 13:58] LABS: UPRO/UCREAT Ratio 0.31 mg/mg CR
== END 2025-04-26 12:58 | disposition home or self-care (01) ==
LOC: LAB 13:00
PROVIDERS: PCP Family Medicine; Visit Provider Internal Medicine
DX: M32.9 Systemic lupus erythematosus, unspecified (principal)
CPT/HCPCS: 36415; 82565; 82570; 84156; 84460; 85025